=== PATIENT | male | born 1965 | race Caucasian/White ===

== ENCOUNTER 2024-03-06 21:00 | Emergency (ER) | payer BC ==
[2024-03-06] MEDS ORDERED: Sodium Chloride 0.9% 10 ML Syringe FLUSH PRN (21:24)
[2024-03-06 21:31] LABS: BASOPHILS PERCENT AUTO 0.4 % (0.3-3.8); EOSINOPHILS ABSOLUTE AUTO 0.2 x10-3/uL (0.0-0.6); EOSINOPHILS PERCENT AUTO 3.2 % (0.1-6.8); HEMATOCRIT 48.2 % (38.3-50.1); HEMOGLOBIN 16.9 g/dL (12.9-17.7); LYMPHOCYTES ABSOLUTE AUTO 1.8 x10-3/uL (0.5-4.5); MEAN CORPUSCULAR HEMOGLOBIN 31.8 pg (27.0-33.3); MEAN CORPUSCULAR VOLUME 90.8 fL (80.8-98.7); MEAN PLATELET VOLUME 8.2 fL (6.7-11.0); MONOCYTES ABSOLUTE AUTO 0.6 x10-3/uL (0.0-1.2); MONOCYTES PERCENT AUTO 8.1 % (5.5-15.2); NEUTROPHILS ABSOLUTE AUTO 4.6 x10-3/uL (1.7-6.9); NEUTROPHILS PERCENT AUTO 63.3 % (40.3-71.8); PLATELET COUNT,PLT 215 x10(3)uL (117-477); RED BLOOD CELL COUNT 5.31 x10(6)uL (3.90-5.90); WHITE BLOOD CELL COUNT,WBC 7.3 x10-3/uL (3.2-10.1)
[2024-03-06 21:36] LABS: LIPASE 36 U/L (16-77)
[2024-03-06 21:37] LABS: BLOOD UREA NITROGEN,BUN 13 mg/dL (7-18); BUN/CREATININE RATIO 11.8 (9-20); CALCIUM 9.7 mg/dL (8.6-10.2); CARBON DIOXIDE,CO2 31 mmol/L (21-32); CHLORIDE,CL 104 mmol/L (100-110); CREATININE 1.1 mg/dL (0.70-1.30); EST CRCL DRUG DOSING (CG) 70.11 mL/min; ESTIMATED GFR 79 mL/min (>60); GLUCOSE RANDOM 122 mg/dL (80-116); POTASSIUM,K 3.6 mmol/L (3.5-5.3); SODIUM,NA 145 mmol/L (135-145)
[2024-03-06 21:39] LABS: C-REACTIVE PROTEIN < 0.50 mg/dL (<0.50)
[2024-03-06 21:45] LABS: LACTIC ACID 1.1 mmol/L (0.4-2.0)
[2024-03-06 21:46] LABS: A/G RATIO 1.3; ALANINE AMINOTRANSFERASE,ALT 36 U/L (12-36); ALBUMIN 4.6 g/dL (3.5-5.2); ALKALINE PHOSPHATASE 97 IU/L (56-112); ASPARTATE AMNIOTRANSFERASE,AST 23 IU/L (5-25); BILIRUBIN TOTAL 0.4 mg/dL (0.1-1.3); PROTEIN TOTAL,TP 8.2 g/dL (6.0-8.0)
[2024-03-06] MEDS: Iopamidol 755 Mg/ML 100 ML Bottle IV SCH (21:46)
[2024-03-06] MEDS: Sodium Chloride 0.9% 1,000 ML IV ONE (21:53)
== END 2024-03-06 22:56 | disposition home or self-care (01) ==
LOC: FB.ED 21:00
DX: K40.20 Bilateral inguinal hernia, without obstruction or gangrene, not specified as recurrent (principal); K63.89 Other specified diseases of intestine
CPT/HCPCS: 74177; 80053; 83605; 83690; 85025; 86140; 96360; 99284-25; J7030; Q9967